=== PATIENT | male | born 1955 | race Two or more races ===

== ENCOUNTER 2022-11-21 21:42 | Emergency (ER) | payer OTHER ==
[~2022-11-21] VITALS: Ht 167.6 cm; Wt 77.1 kg
[2022-11-22] MEDS ORDERED: HYDROcodone-ACET 5/325MG TAB PO ONE (00:30)
[2022-11-22] MEDS ORDERED: ONDANSETRON ODT 4 MG TAB PO ONE (00:30)
[2022-11-22 03:35] VITALS: BP 138/69; PULSE 72; RESP 18; TEMP 97.9; O2SAT 96
[2022-11-22] MEDS ORDERED: ACE3T PO (05:21)
== END 2022-11-22 05:35 | disposition home or self-care (01) ==
LOC: ER 21:42
DX: S39.012A Strain of muscle, fascia and tendon of lower back, initial encounter (principal); S70.02XA Contusion of left hip, initial encounter; M48.10 Ankylosing hyperostosis [Forestier], site unspecified; F03.90 Unspecified dementia, unspecified severity, without behavioral disturbance, psychotic disturbance, mood disturbance, and anxiety; W18.2XXA Fall in (into) shower or empty bathtub, initial encounter; Y93.01 Activity, walking, marching and hiking; Y92.89 Other specified places as the place of occurrence of the external cause; Y99.8 Other external cause status
CPT/HCPCS: 72128; 72131; 72192; 99284; Q0162